=== PATIENT | male | born 1960 | race Hispanic/Latino ===

== ENCOUNTER 2017-05-15 22:56 | Emergency (ER) | payer BC ==
[2017-05-15 23:05] VITALS: BP 157/75; PULSE 86; RESP 19; TEMP 98.7; O2SAT 96
--- NOTE | 2017-05-15 23:28 | ED PDOC ---
Arrival/HPI - General Chief Complaint: ENT Problem Time Seen by Provider: 05/15/17 23:19 Historian: Patient - History of Present Illness Narrative History of Present Illness (Text): 05/15/17 23:28 Devan Rao is a 56 year old male who presents to the emergency department complaining of foreign body sensation in his throat. Patient states a cinnamon capsule became stuck in his throat after he took vitamin supplements at 17:15 today. Patient states he coughed up most of the cinnamon powder but still feels a foreign body/burning sensation to his left throat. Patient denies any nausea, vomiting, abdominal pain, chest pain, shortness of breath, or any other complaints. Time/Duration: 4-6 hours (17:15 today) Symptom Onset: Gradual Symptom Course: Unchanged Activities at Onset: Rest, Light Context: Home Past Medical History - Provider Review Nursing Documentation Reviewed: Yes - Infectious Disease Hx of Infectious Diseases: None - Cardiac Hx Hypertension: Yes - Musculoskeletal/Rheumatological Hx Gout: Yes - Psychiatric Hx Substance Use: No - Surgical History Hx Appendectomy: Yes - Anesthesia Hx Anesthesia: Yes Hx Anesthesia Reactions: No Hx Malignant Hyperthermia: No Family/Social History - Physician Review Nursing Documentation Reviewed: Yes Family/Social History: Unknown Family HX Smoking Status: Never Smoked Hx Alcohol Use: Yes Frequency of alcohol use: Socially Hx Substance Use: No Allergies/Home Meds Allergies/Adverse Reactions: Allergies No Known Allergies Allergy (Verified 05/15/17 23:05) Home Medications: Home Meds Medication Instructions Recorded Confirmed Allopurinol [Zyloprim] 100 mg PO DAILY 05/15/17 05/15/17 Atorvastatin [Lipitor] 20 mg PO DAILY 05/15/17 05/15/17 Omeprazole 20 mg PO DAILY 05/15/17 05/15/17 Valsartan/Hydrochlorothiazide 1 tab PO DAILY 05/15/17 05/15/17 [Valsartan-Hctz 160-12.5 mg Tab] Review of Systems - Physician Review All systems were reviewed & negative as marked: Yes - Review of Systems Constitutional: Normal. absent: Fevers Eyes: Normal ENT: Other (+throat foreign body sensation) Respiratory: Normal. absent: SOB, Cough Cardiovascular: Normal. absent: Chest Pain Gastrointestinal: Normal. absent: Abdominal Pain, Diarrhea, Nausea, Vomiting Genitourinary Male: Normal. absent: Dysuria, Frequency, Hematuria, Urinary Output Changes Musculoskeletal: Normal. absent: Back Pain, Neck Pain Skin: Normal. absent: Rash Neurological: Normal. absent: Headache, Dizziness Endocrine: Normal Hemo/Lymphatic: Normal Psychiatric: Normal Physical Exam Vital Signs Reviewed: Yes Vital Signs Temp Pulse Resp BP Pulse Ox 05/15/17 22:59 98.7 F 86 19 157/75 H 96 Temperature: Afebrile Blood Pressure: Normal Pulse: Regular Respiratory Rate: Normal Appearance: Positive for: Well-Appearing, Non-Toxic, Comfortable Pain Distress: None Mental Status: Positive for: Alert and Oriented X 3 - Systems Exam Head: Present: Atraumatic, Normocephalic Pupils: Present: PERRL Extroacular Muscles: Present: EOMI Conjunctiva: Present: Normal Ears: Present: Normal, NORMAL TM, Normal Canal. No: Erythema, TM Bulging, Fluid , TM Perf Mouth: Present: Moist Mucous Membranes Pharnyx: Present: Normal. No: ERYTHEMA, EXUDATE, TONSILS ENLARGED, Peritonsilar Swelling, Uvular Deviation, Muffled/Hoarse Voice, Strider, Soft Palate/Uvular Edema, Other (No foreign body noted) Nose (External): Present: Atraumatic Nose (Internal): Present: Normal Inspection Neck: Present: Normal Range of Motion, Other. No: Meningeal Signs, MIDLINE TENDERNESS, Paraspinal Tenderness Respiratory/Chest: Present: Clear to Auscultation, Good Air Exchange. No: Respiratory Distress, Accessory Muscle Use Cardiovascular: Present: Regular Rate and Rhythm, Normal S1, S2. No: Murmurs Abdomen: Present: Normal Bowel Sounds. No: Tenderness, Distention, Peritoneal Signs Back: Present: Normal Inspection Upper Extremity: Present: Normal Inspection. No: Cyanosis, Edema Lower Extremity: Present: Normal Inspection. No: Edema Neurological: Present: GCS=15, CN II-XII Intact, Speech Normal Skin: Present: Warm, Dry, Normal Color. No: Rashes Psychiatric: Present: Alert, Oriented x 3, Normal Insight, Normal Concentration Medical Decision Making ED Course and Treatment: 05/15/17 23:28 Impression: 56 year old male complaining of foreign body sensation to left throat after taking cinnamon supplement. Differential Diagnosis included but are not limited to: foreign body Plan: -- CT Neck Soft Tissue and Chest -- Reassess and disposition Progress Notes: 05/15/17 23:[address] Davis ENT, covering for Dr. Evangelista, who recommends pt drink lots of fluids at this time. 05/16/17 01:38 Reviewed radiology, CT Neck shows: Anterior to the epiglottis are two subcentimeter rounded areas of increased attenuation, possibly representing calcifications, versus residual foreign body, for which direct visualization may be performed if clinical suspicion persists. CT Chest shows: No evidence of a radiopaque foreign body, as detailed above. 05/16/17 02:[address] Davis regarding CT scan results, recommends pt continues to drink lots of fluid, antibiotic prophylaxis, and follow up outpt. Pt states he is able to swallow liquids without difficulty. Reports he feels better and foreign body sensation has resolved. Pt stable for d/c home. Pt instructed to drink plenty of fluids, take medication as instructed, and to follow up with ENT this week. - RAD Interpretation Narrative RAD Interpretations (Text): CT Neck shows: Nasopharynx: Unremarkable. Oropharynx: Unremarkable. No significant tonsillar enlargement. Hypopharynx: Unremarkable. Larynx: Anterior to the epiglottis are to subcentimeter rounded areas of increased attenuation, possibly representing calcifications, versus residual foreign body. Normal epiglottis. Trachea: Unremarkable. Retropharyngeal space: Unremarkable. Submandibular/parotid glands: Unremarkable. Glands are normal in size. Thyroid: Unremarkable. No enlarged or calcified nodules. Bones/joints: No acute fracture. Significant degenerative disease is noted within the cervical spine. Soft tissues: Unremarkable. Vasculature: No acute findings. Lymph nodes: Unremarkable. No lymphadenopathy. Lung apices: Unremarkable as visualized. IMPRESSION: Anterior to the epiglottis are two subcentimeter rounded areas of increased attenuation, possibly representing calcifications, versus residual foreign body, for which direct visualization may be performed if clinical suspicion persists. CT Chest shows: Lungs: No mass. No consolidation. Azygos fissure. Pleural spaces: No significant effusion. No pneumothorax. Heart: No cardiomegaly. No significant pericardial effusion. Vasculature: No aortic aneurysm. Lymph nodes: No enlarged lymph nodes. Bones: No acute fracture. IMPRESSION: No evidence of a radiopaque foreign body, as detailed above. Radiology Orders: 05/15/17 23:38 NECK & CHEST W/O CONTRAST [CT] Stat Coding Director: Radiologist - Medication Orders Current Medication Orders: Amoxicillin (Amoxil 250 Mg/5 Ml Susp) 500 mg PO STAT STA PRN Reason: Protocol Stop: 05/16/17 02:16 - Scribe Statement The provider has reviewed the documentation as recorded by the Scribe Areli Pablo All medical record entries made by the Scribe were at my direction and personally dictated by me. I have reviewed the chart and agree that the record accurately reflects my personal performance of the history, physical exam, medical decision making, and the department course for this patient. I have also personally directed, reviewed, and agree with the discharge instructions and disposition. Disposition/Present on Arrival - Present on Arrival Any Indicators Present on Arrival: No History of DVT/PE: No History of Uncontrolled Diabetes: No Urinary Catheter: No History of Decub. Ulcer: No History Surgical Site Infection Following: None - Disposition Have Diagnosis and Disposition been Completed?: Yes Diagnosis: Throat irritation Disposition: HOME/ ROUTINE Disposition Time: 02:06 Patient Plan: Discharge Patient Problems: Current Active Problems Problem Status Onset Throat irritation Acute Condition: GOOD Additional Instructions: Drink plenty of liquids/avoid cinnnamon capsules/antibiotic as prescribed/ follow up with ear/nose throat doctor this week Prescriptions: Amoxicillin [Amoxicillin 250mg/5ml Susp] 10 ml PO BID #200 ml Referrals: Danitza Travis, [Primary Care Provider] - Follow up with primary Lawrence Davis DO [Staff Provider] - Follow up with primary
--- NOTE | 2017-05-16 01:28 | CT ---
EXAM: CT Neck Without Intravenous Contrast CLINICAL HISTORY: 56 years old, male; Signs and symptoms; Other: Pill caught in throat per pt; Dysphagia / difficulty swallowing; Additional info: R/O foreign body TECHNIQUE: Axial computed tomography images of the neck without intravenous contrast. This CT exam was performed using one or more of the following dose reduction techniques: automated exposure control, adjustment of the mA and/or kV according to patient size, and/or use of iterative reconstruction technique. Coronal and sagittal reformatted images were created and reviewed. COMPARISON: No relevant prior studies available. FINDINGS: Nasopharynx: Unremarkable. Oropharynx: Unremarkable. No significant tonsillar enlargement. Hypopharynx: Unremarkable. Larynx: Anterior to the epiglottis are to subcentimeter rounded areas of increased attenuation, possibly representing calcifications, versus residual foreign body. Normal epiglottis. Trachea: Unremarkable. Retropharyngeal space: Unremarkable. Submandibular/parotid glands: Unremarkable. Glands are normal in size. Thyroid: Unremarkable. No enlarged or calcified nodules. Bones/joints: No acute fracture. Significant degenerative disease is noted within the cervical spine. Soft tissues: Unremarkable. Vasculature: No acute findings. Lymph nodes: Unremarkable. No lymphadenopathy. Lung apices: Unremarkable as visualized. IMPRESSION: Anterior to the epiglottis are two subcentimeter rounded areas of increased attenuation, possibly representing calcifications, versus residual foreign body, for which direct visualization may be performed if clinical suspicion persists. EXAM: CT Chest Without Intravenous Contrast CLINICAL HISTORY: 56 years old, male; Signs and symptoms; Other: Pill caught in throat per pt; Dysphagia / difficulty swallowing; Additional info: R/O foreign body TECHNIQUE: Axial computed tomography images of the chest without intravenous contrast. This CT exam was performed using one or more of the following dose reduction techniques: automated exposure control, adjustment of the mA and/or kV according to patient size, and/or use of iterative reconstruction technique. Coronal and sagittal reformatted images were created and reviewed. COMPARISON: No relevant prior studies available. FINDINGS: Lungs: No mass. No consolidation. Azygos fissure. Pleural spaces: No significant effusion. No pneumothorax. Heart: No cardiomegaly. No significant pericardial effusion. Vasculature: No aortic aneurysm. Lymph nodes: No enlarged lymph nodes. Bones: No acute fracture. IMPRESSION: No evidence of a radiopaque foreign body, as detailed above.
[2017-05-16] MEDS ORDERED: Amoxicillin 250 mg/5 ml Susp (150 ml) PO STA (02:15)
== END 2017-05-16 03:43 | disposition home or self-care (01) ==
LOC: ED 22:56
DX: R07.0 Pain in throat (principal)